=== PATIENT | male | born 1965 | race Caucasian/White ===

== ENCOUNTER 2016-08-31 09:48 | Emergency (ER) | payer MEDICARE ==
[2016-08-31 09:57] VITALS: O2SAT 95
--- NOTE | 2016-08-31 10:09 | ERPHSYRPT ---
- History of Present Illness Time Seen by Provider: 08/31/16 10:03 Source: patient, family Exam Limitations: no limitations Patient Subjective Stated Complaint: pt reports swelling to left arm beginning aug 26-denies injury-denies numbness or tinlging Triage Nursing Assessment: no obvious deformity to arm-no obvious injury-radial pulse regular et strong Physician History: The patient is a 51-year-old male with his complaining of a tender swollen area that is increasing in size on his distal left forearm. The tenderness and swelling began August 26. He is concerned today because it has moved an increased in size. He denies any injury to the area. He denies repetitive motion. He is left-handed. His past medical history is significant for hypertension, diabetes, and high cholesterol. Timing/Duration: day(s) (5) Quality: painful Severity: mild Location: other (left forearm) Possible Causes: no cause identified Associated Symptoms: other (swelling) Allergies/Adverse Reactions: ibuprofen [From Motrin] Allergy (Mild, Verified 08/31/16 09:57) tramadol Allergy (Mild, Verified 08/31/16 09:57) ketorolac [From Toradol] Allergy (Verified 08/31/16 09:57) Home Medications: Insulin Glargine,Hum.rec.anlog [Lantus] 36 unit SQ HS 05/11/16 [History] Insulin Aspart [NovoLOG Insulin] 0 unit SQ 05/12/16 [History] Aspirin [Aspir-Low] 81 mg PO DAILY 05/20/16 [History] Lisinopril 20 mg [Zestril 20 MG] 20 mg PO DAILY 05/20/16 [History] Multivitamin [Multivitamins] 1 each PO DAILY 05/20/16 [History] Simvastatin [Zocor] 20 mg PO DAILY 05/20/16 [History] Trazodone HCl 100 mg PO HS 05/20/16 [History] Alprazolam [Xanax] 2 mg PO DAILY 06/29/16 [History] Cholecalciferol (Vitamin D3) [Vitamin D] 2,000 unit PO DAILY 07/14/16 [ History] Lidocaine HCl 5% Patch [Lidoderm Patch 5%] 1 patch TOP HS 07/14/16 [ History] [place]-3/Dha/Epa/Fish Oil [[place] 3 500 Softgel] 1 each PO DAILY 07/14/16 [History ] Hx Tetanus, Diphtheria Vaccination/Date Given: Yes (12/2014) Hx Influenza Vaccination/Date Given: Yes Hx Pneumococcal Vaccination/Date Given: No Immunizations Up to Date: Yes - Review of Systems Constitutional: No Fever, No Chills Eyes: No Symptoms Ears, Nose, & Throat: No Symptoms Respiratory: No Cough, No Dyspnea Cardiac: No Chest Pain, No Edema, No Syncope Abdominal/Gastrointestinal: No Abdominal Pain, No Nausea, No Vomiting, No Diarrhea Genitourinary Symptoms: No Dysuria Musculoskeletal: No Back Pain, No Neck Pain Skin: Other (swelling) Neurological: No Dizziness, No Focal Weakness, No Sensory Changes Psychological: No Symptoms Endocrine: No Symptoms Hematologic/Lymphatic: No Symptoms Immunological/Allergic: No Symptoms All Other Systems: Reviewed and Negative - Past Medical History Pertinent Past Medical History: Yes Cardiac History: High Cholesterol, Hypertension Endocrine Medical History: Diabetes Type II Musculoskeletal History: Arthritis Psycho-Social History: Depression, Other Other Medical History: CHRONIC PAIN. PTSD, LOWER BACK PAIN - Past Surgical History Past Surgical History: Yes Musculoskeletal: Joint Replacement, Orthopedic Surgery Other Surgical History: back surgeryx3. left knee, right knee. ankle fusion left. fatty tumor. tonsilectomy - Social History Smoking Status: Never smoker Exposure to second hand smoke: No Drug Use: none Patient Lives Alone: No - Nursing Vital Signs Nursing Vital Signs: Initial Vital Signs Temperature 97.3 F Temperature Source Oral Pulse Rate 65 Respiratory Rate 16 Blood Pressure 157/94 Pain Intensity 8 - Physical Exam General Appearance: no apparent distress, alert Eye Exam: PERRL/EOMI, eyes nml inspection Ears, Nose, Throat Exam: normal ENT inspection, pharynx normal, moist mucous membranes Neck Exam: normal inspection, non-tender, supple, full range of motion Respiratory Exam: normal breath sounds, lungs clear, No respiratory distress Cardiovascular Exam: regular rate/rhythm, normal heart sounds Gastrointestinal/Abdomen Exam: soft, mass, No tenderness Rectal Exam: not done Back Exam: normal inspection, normal range of motion, No CVA tenderness, No vertebral tenderness Extremity Exam: normal inspection, normal range of motion Neurologic Exam: alert, oriented x 3, cooperative, normal mood/affect, sensation nml, No motor deficits Skin Exam: other (mild swelling and tenderness distal ventral left forearm) SpO2 Interpretation: normal SpO2: 95 Oxygen Delivery: Room Air - Progress Progress: unchanged Counseled pt/family regarding: diagnosis - Departure Time of Disposition: 10:14 Departure Disposition: Home Clinical Impression: Pain and swelling of left forearm Condition: Stable Critical Care Time: No Additional Instructions: Tylenol 1000 mg every 8 hrs and ice to area as needed. Follow up in 1 to 2 days if no improvement. Prescriptions: Clindamycin HCl 1 cap PO TID #30 capsule
[2016-08-31 10:24] VITALS: BP 149/74; PULSE 68
== END 2016-08-31 10:24 | disposition home or self-care (01) ==
LOC: ED 09:48
DX: M79.632 Pain in left forearm (principal); M79.89 Other specified soft tissue disorders
CPT/HCPCS: 99282

== ENCOUNTER 2016-10-09 09:19 | Emergency (ER) | payer MEDICARE ==
[2016-10-09 09:33] VITALS: O2SAT 97
--- NOTE | 2016-10-09 09:50 | ERPHSYRPT ---
- History of Present Illness Time Seen by Provider: 10/09/16 09:41 Source: patient, family Patient Subjective Stated Complaint: states smashed right 4th digit with a puller through deck. he and a frind were holding it up and it slipped and smashe his finger. He is only in the er to see if it is broken beacuse it "hurts to move" Triage Nursing Assessment: alert and orientetd. pink warm and dry. afebrile. limited rom in the right 4th digit. strong radial pulse. slight swelling Physician History: CC: right ring finger injury Hx: 51 y/o patient of Dr Richardson. Got right ring finger caught in mower belt changing jayna a few days ago. Pain and swelling. Using APAP. Tetanus up to date one year ago. No fever or chills. Severity of Pain-Max: moderate Severity of Pain-Current: moderate Allergies/Adverse Reactions: ibuprofen [From Motrin] Allergy (Mild, Verified 08/31/16 09:57) tramadol Allergy (Mild, Verified 08/31/16 09:57) ketorolac [From Toradol] Allergy (Verified 08/31/16 09:57) Home Medications: Insulin Glargine,Hum.rec.anlog [Lantus] 36 unit SQ HS 05/11/16 [History] Aspirin [Aspir-Low] 81 mg PO DAILY 05/20/16 [History] Lisinopril 20 mg [Zestril 20 MG] 20 mg PO DAILY 05/20/16 [History] Multivitamin [Multivitamins] 1 each PO DAILY 05/20/16 [History] Simvastatin [Zocor] 20 mg PO DAILY 05/20/16 [History] Trazodone HCl 100 mg PO HS 05/20/16 [History] Alprazolam [Xanax] 2 mg PO DAILY 06/29/16 [History] Cholecalciferol (Vitamin D3) [Vitamin D] 2,000 unit PO DAILY 07/14/16 [ History] Lidocaine HCl 5% Patch [Lidoderm Patch 5%] 1 patch TOP HS 07/14/16 [ History] [place]-3/Dha/Epa/Fish Oil [[place] 3 500 Softgel] 1 each PO DAILY 07/14/16 [History ] Hx Tetanus, Diphtheria Vaccination/Date Given: Yes (12/2014) Hx Influenza Vaccination/Date Given: Yes Hx Pneumococcal Vaccination/Date Given: No - Review of Systems Constitutional: No Fever, No Chills Musculoskeletal: Injury (right ring finger) Neurological: No Focal Weakness, No Parasthesia - Past Medical History Pertinent Past Medical History: Yes Cardiac History: High Cholesterol, Hypertension Endocrine Medical History: Diabetes Type II Musculoskeletal History: Arthritis Psycho-Social History: Depression, Other Other Medical History: CHRONIC PAIN. PTSD, LOWER BACK PAIN - Past Surgical History Past Surgical History: Yes Musculoskeletal: Joint Replacement, Orthopedic Surgery Other Surgical History: back surgeryx3. left knee, right knee. ankle fusion left. fatty tumor. tonsilectomy - Social History Smoking Status: Never smoker Exposure to second hand smoke: No Drug Use: none Patient Lives Alone: No - Nursing Vital Signs Nursing Vital Signs: Initial Vital Signs Temperature 98.0 F Temperature Source Oral Pulse Rate 56 Respiratory Rate 16 Blood Pressure [Left Arm] 142/65 Pain Intensity 8 - Physical Exam General Appearance: alert Cardiovascular/Respiratory Exam: regular rate/rhythm Neuro/Tendon Exam: normal motor functions Mental Status Exam: alert, oriented x 3, cooperative Skin Exam: warm, dry SpO2: 97 Oxygen Delivery: Room Air Comments: right ring finger has some swelling, mild erythema, no drng, good cap refill. Some limited ROM due to swellling. - Course Nursing assessment & vital signs reviewed: Yes - Radiology Exams right hand X-ray Interpretation: Discussed w/ radiologist, No Fracture (No FB) Ordered Tests: Active Orders 24 hr Category Date Time Status Splint STAT Care 10/09/16 10:51 Active Wound Care STAT Care 10/09/16 09:45 Active HAND (MINIMUM 3 VIEWS) Stat Exams 10/09/16 09:46 Completed - Progress Progress Note: 10/09/16 10:53 He has APAP at home for pain. Will try finger splint. Instr given. Counseled pt/family regarding: diagnosis, need for follow-up, rad results - Departure Time of Disposition: 10:53 Departure Disposition: Home Clinical Impression: Contusion of right ring finger Qualifiers: Encounter type: initial encounter Damage to nail status: without damage Qualified Code(s): S60.041A - Contusion of right ring finger without damage to nail, initial encounter Condition: Stable Critical Care Time: No Referrals: GORAN,KWAME, MD [Primary Care Provider] - Instructions: Contusion Additional Instructions: SPRAINS/STRAINS/CONTUSIONS 1. Rest the affected area as much as possible for the next few days. 2. Apply ice to the affected area for 20-30 minutes at a time, several times a day. 3. If you receive an elastic wrap, wear it only while awake for comfort and support. Re-wrap the elastic wrap if it feels too tight or too loose. 4. If swelling is present, elevate the affected part above the level of the heart for at least 2 to 3 days. 5. Use splints, slings, or crutches as instructed. 6. Watch for severe swelling, coldness, numbness, and discoloration of the fingers and toes. See your family physician or return to the emergency department if any of these are noted. Follow up with Dr Richardson as needed. Splint, ice, rest, elevate.
--- NOTE | 2016-10-09 10:42 | XRAY ---
Indication: Fourth finger pain following injury. Comparison: July 07, 2016. 3 views of the right hand obtained. Again negative for acute fracture, dislocation, or soft tissue abnormalities.
[2016-10-09 11:18] VITALS: BP 138/67; PULSE 62
== END 2016-10-09 11:19 | disposition home or self-care (01) ==
LOC: ED 09:19
DX: S60.041A Contusion of right ring finger without damage to nail, initial encounter (principal); W22.8XXA Striking against or struck by other objects, initial encounter; I10 Essential (primary) hypertension; E11.9 Type 2 diabetes mellitus without complications
CPT/HCPCS: 73130; 99282; 99283

== ENCOUNTER 2016-11-15 20:31 | Emergency (ER) | payer MEDICARE ==
--- NOTE | 2016-11-15 21:15 | XRAY ---
Indication: Index finger pain following injury. Comparison: None 3 views of the left hand obtained. No bony, articular, or soft tissue abnormalities.
--- NOTE | 2016-11-15 21:15 | ERPHSYRPT ---
- History of Present Illness Time Seen by Provider: 11/15/16 21:12 Source: patient Exam Limitations: no limitations Patient Subjective Stated Complaint: pt states he hurt his finger today and now has a knot and bruising. Triage Nursing Assessment: pt alert and oriented, answers questions approp. pt ambulatory with steady gait noted. respirations nonlabored with lungs cta. skin pink warm and dry. lt index finger with some bruising, decreased rom. cap refill and radial pulse wnl. Physician History: pt states he hurt his finger today and now has a knot and bruising. Occurred: last week Method of Injury: twisted Quality: constant Severity of Pain-Max: mild Severity of Pain-Current: mild Extremities Pain Location: 2nd finger: left Modifying Factors: Improves With: nothing Associated Symptoms: none Allergies/Adverse Reactions: ibuprofen [From Motrin] Allergy (Mild, Verified 08/31/16 09:57) tramadol Allergy (Mild, Verified 08/31/16 09:57) ketorolac [From Toradol] Allergy (Verified 08/31/16 09:57) strawberry Allergy (Verified 11/15/16 20:48) Home Medications: Insulin Glargine,Hum.rec.anlog [Lantus] 36 unit SQ HS 05/11/16 [History] Aspirin [Aspir-Low] 81 mg PO DAILY 05/20/16 [History] Lisinopril 20 mg [Zestril 20 MG] 20 mg PO DAILY 05/20/16 [History] Multivitamin [Multivitamins] 1 each PO DAILY 05/20/16 [History] Simvastatin [Zocor] 20 mg PO DAILY 05/20/16 [History] Trazodone HCl 100 mg PO HS 05/20/16 [History] Alprazolam [Xanax] 2 mg PO DAILY 06/29/16 [History] Cholecalciferol (Vitamin D3) [Vitamin D] 2,000 unit PO DAILY 07/14/16 [ History] Lidocaine HCl 5% Patch [Lidoderm Patch 5%] 1 patch TOP HS 07/14/16 [ History] [place]-3/Dha/Epa/Fish Oil [[place] 3 500 Softgel] 1 each PO DAILY 07/14/16 [History ] Hx Tetanus, Diphtheria Vaccination/Date Given: Yes (12/2014) Hx Influenza Vaccination/Date Given: Yes Hx Pneumococcal Vaccination/Date Given: No Immunizations Up to Date: Yes - Review of Systems Constitutional: No Symptoms Eyes: No Symptoms Ears, Nose, & Throat: No Symptoms Respiratory: No Symptoms Cardiac: No Symptoms Abdominal/Gastrointestinal: No Symptoms Genitourinary Symptoms: No Symptoms Musculoskeletal: Other (left index finger knot) - Past Medical History Pertinent Past Medical History: Yes Cardiac History: High Cholesterol, Hypertension Endocrine Medical History: Diabetes Type II Musculoskeletal History: Arthritis Psycho-Social History: Depression, Other Other Medical History: CHRONIC PAIN. PTSD, LOWER BACK PAIN - Past Surgical History Past Surgical History: Yes Musculoskeletal: Joint Replacement, Orthopedic Surgery Other Surgical History: back surgeryx3. left knee, right knee. ankle fusion left. fatty tumor. tonsilectomy - Social History Smoking Status: Former smoker Exposure to second hand smoke: No Drug Use: none Patient Lives Alone: No - Nursing Vital Signs Nursing Vital Signs: Initial Vital Signs Temperature 98.4 F Temperature Source Oral Pulse Rate 86 Respiratory Rate 18 Blood Pressure [] 178/96 Pain Intensity 10 - Physical Exam General Appearance: no apparent distress Hand Exam: limited ROM, soft tissue tenderness, stiffness, swelling SpO2: 96 Oxygen Delivery: Room Air - Radiology Exams Hand X-ray Interpretation: Reviewed by me Ordered Tests: Active Orders 24 hr Category Date Time Status HAND (MINIMUM 3 VIEWS) Stat Exams 11/15/16 20:41 Completed - Progress Progress: improved Counseled pt/family regarding: diagnosis, need for follow-up, rad results - Departure Time of Disposition: 21:40 Departure Disposition: Home Clinical Impression: Sprain of left index finger Qualifiers: Encounter type: initial encounter Sprain of finger site: metacarpophalangeal joint Qualified Code(s): S63.651A - Sprain of metacarpophalangeal joint of left index finger, initial encounter Condition: Stable Critical Care Time: No Referrals: KWAME ZIMMER MD [Primary Care Provider] - Instructions: Finger Sprain Additional Instructions: SPRAINS/STRAINS/CONTUSIONS 1. Rest the affected area as much as possible for the next few days. 2. Apply ice to the affected area for 20-30 minutes at a time, several times a day. 3. If you receive an elastic wrap, wear it only while awake for comfort and support. Re-wrap the elastic wrap if it feels too tight or too loose. 4. If swelling is present, elevate the affected part above the level of the heart for at least 2 to 3 days. 5. Use splints, slings, or crutches as instructed. 6. Watch for severe swelling, coldness, numbness, and discoloration of the fingers and toes. See your family physician or return to the emergency department if any of these are noted.
[2016-11-15 22:12] VITALS: BP 134/70; PULSE 84; O2SAT 100
== END 2016-11-15 22:12 | disposition home or self-care (01) ==
LOC: ED 20:31
DX: S63.651A Sprain of metacarpophalangeal joint of left index finger, initial encounter (principal); X50.0XXA Overexertion from strenuous movement or load, initial encounter; E78.00 Pure hypercholesterolemia, unspecified; I10 Essential (primary) hypertension; E11.9 Type 2 diabetes mellitus without complications; Z79.899 Other long term (current) drug therapy
CPT/HCPCS: 73130; 99284

== ENCOUNTER 2016-11-25 18:36 | Emergency (ER) | payer MEDICARE ==
[2016-11-25 18:47] VITALS: O2SAT 97
[2016-11-25] MEDS ORDERED: Cyclobenzaprine 10 MG PO ONE (19:42)
--- NOTE | 2016-11-25 19:42 | ERPHSYRPT ---
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 PT DENIES WEAKNESS, NUMBNESS, VISUAL DISTURBANCE, NAUSEA, VOMITING. Allergies/Adverse Reactions: ibuprofen [From Motrin] Allergy (Mild, Verified 11/25/16 18:47) tramadol Allergy (Mild, Verified 11/25/16 18:47) ketorolac [From Toradol] Allergy (Verified 11/25/16 18:47) strawberry Allergy (Verified 11/25/16 18:47) Home Medications: Insulin Glargine,Hum.rec.anlog [Lantus] 36 unit SQ HS 05/11/16 [History] Aspirin [Aspir-Low] 81 mg PO DAILY 05/20/16 [History] Lisinopril 20 mg [Zestril 20 MG] 20 mg PO DAILY 05/20/16 [History] Multivitamin [Multivitamins] 1 each PO DAILY 05/20/16 [History] Simvastatin [Zocor] 20 mg PO DAILY 05/20/16 [History] Trazodone HCl 100 mg PO HS 05/20/16 [History] Alprazolam [Xanax] 2 mg PO DAILY 06/29/16 [History] Cholecalciferol (Vitamin D3) [Vitamin D] 2,000 unit PO DAILY 07/14/16 [ History] Lidocaine HCl 5% Patch [Lidoderm Patch 5%] 1 patch TOP HS 07/14/16 [ History] [place]-3/Dha/Epa/Fish Oil [[place] 3 500 Softgel] 1 each PO DAILY 07/14/16 [History ] Hx Tetanus, Diphtheria Vaccination/Date Given: Yes (12/2014) Hx Influenza Vaccination/Date Given: Yes Hx Pneumococcal Vaccination/Date Given: No Immunizations Up to Date: Yes - Review of Systems Constitutional: No Fever Eyes: No Vision Changes Abdominal/Gastrointestinal: No Nausea, No Vomiting Musculoskeletal: Neck Pain Neurological: Headache, No Sensory Changes All Other Systems: Reviewed and Negative - Past Medical History Pertinent Past Medical History: Yes Cardiac History: High Cholesterol, Hypertension Endocrine Medical History: Diabetes Type II Musculoskeletal History: Arthritis Psycho-Social History: Depression, Other Other Medical History: CHRONIC PAIN. PTSD, LOWER BACK PAIN - Past Surgical History Past Surgical History: Yes Musculoskeletal: Joint Replacement, Orthopedic Surgery Other Surgical History: back surgeryx3. left knee, right knee. ankle fusion left. fatty tumor. tonsilectomy - Social History Smoking Status: Former smoker Exposure to second hand smoke: No Drug Use: none Patient Lives Alone: No - Nursing Vital Signs Nursing Vital Signs: Initial Vital Signs Temperature 98.4 F Temperature Source Oral Pulse Rate 80 Respiratory Rate 18 Blood Pressure [Right Arm] 182/86 Pain Intensity 8 - Physical Exam General Appearance: alert Eye Exam: PERRL/EOMI Ears, Nose, Throat Exam: TMs normal, pharynx normal Neck Exam: other (MILD POSTERIOR TENDERNESS LEFT>RIGHT) Respiratory Exam: normal breath sounds, lungs clear Cardiovascular Exam: normal heart sounds Gastrointestinal/Abdomen Exam: soft, normal bowel sounds Back Exam: normal inspection, No vertebral tenderness Extremity Exam: No pedal edema Neurologic Exam: alert, cooperative Skin Exam: warm, dry, other (MILDLY TENDER NODULE OVER THE LEFT INFERIOR ASPECT OF THE OCCIPUT) SpO2 Interpretation: normal SpO2: 97 Oxygen Delivery: Room Air - Course Nursing assessment & vital signs reviewed: Yes - CT Exams Head CT Interpretation: Discussed w/radiologist (STABLE NORMAL HEAD CT COMPARED TO .) Cervical Spine CT Interpretation: Discussed w/radiologist (LORDOTIC REVERSAL; C5-C7 DDD; NO ACUTE FX OR SUBLUXATION.) Ordered Tests: Active Orders 24 hr Category Date Time Status Cervical Collar Application STAT Care 11/25/16 18:49 Active CERVICAL SPINE WO CONTRAST [CT] Stat Exams 11/25/16 19:41 Taken HEAD WITHOUT CONTRAST [CT] Stat Exams 11/25/16 19:41 Taken Medication Summary Discontinued Medications Generic Name Dose Route Start Last Admin Trade Name Freq PRN Reason Stop Dose Admin Cyclobenzaprine HCl 10 mg 11/25/16 19:42 11/25/16 19:46 Cyclobenzaprine 10 Mg PO 11/25/16 19:43 10 mg STAT ONE Administration Cyclobenzaprine HCl Confirm 11/25/16 19:45 Cyclobenzaprine 10 Mg Administered 11/25/16 19:46 Dose 10 mg .ROUTE .STK-MED ONE - Departure Time of Disposition: 21:05 Departure Disposition: Home Clinical Impression: CERVCAL STRAIN, HEAD CONTUSION Condition: Fair Critical Care Time: No Instructions: Cervical Strain Additional Instructions: FOLLOW UP WITH PRIVATE DOCTOR TOMORROW. WEAR SOFT C-COLLAR FOR 2 WEEKS ONLY WHILE AWAKE. Prescriptions: Hydrocodone Bit/Acetaminophen [[place] 7.5-325 Tablet] 1 each PO Q4HPRN PRN #14 tablet PRN Reason: Pain Cyclobenzaprine HCl [Flexeril] 10 mg PO TID #20 tablet
[2016-11-25] MEDS ORDERED: Cyclobenzaprine 10 MG ONE (19:45)
[2016-11-25 20:50] VITALS: BP 182/86; PULSE 80
[2016-11-25] MEDS ORDERED: NORCO 5/325 MG PO ONE (21:06)
[2016-11-25] MEDS ORDERED: NORCO 5/325 MG ONE (21:08)
--- NOTE | 2016-11-26 08:35 | XRAY ---
Indication: Pain following posterior head injury. Multiple contiguous axial images obtained through the head without contrast. Comparison: June 05, 2016. Again normal appearing brain parenchyma, ventricles, and bony calvarium. Visualized paranasal sinuses and mastoid air cells are pneumatized and clear. Stable left occipital scalp calcified sebaceous cyst. Impression: Stable negative CT head without contrast exam. CT DI 49.41
--- NOTE | 2016-11-26 08:58 | XRAY ---
Indication: Pain following head injury. Multiple contiguous axial images obtained through the cervical spine. Sagittal and coronal reformatted images obtained. Comparison: None Axial images negative for acute fracture, suspicious bony lesions, or spinal canal stenosis. 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 There is mild/moderate C5-C7 and degenerative endplate spurring. Sagittal and coronal reformatted images demonstrates mild lordotic reversal, positional versus paraspinal muscular spasm. Minimal C5-C6 degenerative disc space narrowing. No acute compression fracture, subluxation, or jumped facet. Normal appearing craniocervical junction. Visualized noncontrasted soft tissues unremarkable. CT head reported separately. Impression: 1. Lordotic reversal, positional versus paraspinal spasm. 2. Negative for acute fracture/subluxation. 3. 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 CT DI 138.73
== END 2016-11-25 21:19 | disposition home or self-care (01) ==
LOC: ED 18:36
DX: S16.1XXA Strain of muscle, fascia and tendon at neck level, initial encounter (principal); S00.93XA Contusion of unspecified part of head, initial encounter; W22.8XXA Striking against or struck by other objects, initial encounter; Y93.H9 Activity, other involving exterior property and land maintenance, building and construction
CPT/HCPCS: 70450; 72125; 99284; L0120; L0172; A9270-GY

== ENCOUNTER 2017-01-17 17:26 | Emergency (ER) | payer MEDICARE ==
--- NOTE | 2017-01-17 17:57 | ERPHSYRPT ---
- History of Present Illness Time Seen by Provider: 01/17/17 17:53 Source: patient Exam Limitations: no limitations Patient Subjective Stated Complaint: twisted my right ankle playing softball Triage Nursing Assessment: PCP DR REAGAN, AOX3, VSS, NO FEVER, SWELLING NOTED, NO DEFORMITY NOTED, PMS INTACT. Physician History: The patient is a 51-year-old male with his daughter complaining that he got hit in the right ankle with a baseball while playing baseball with younger males a few minutes ago. He complains of pain and swelling. His past medical history is significant for diabetes, high cholesterol, and hypertension. Method of Injury: direct blow Occurred: just prior to arrival Quality: constant, sharpness Severity of Pain-Max: moderate Severity of Pain-Current: moderate Lower Extremities Pain: ankle: right Modifying Factors: Improves With: pain medication Associated Symptoms: none Allergies/Adverse Reactions: ibuprofen [From Motrin] Allergy (Mild, Verified 11/25/16 18:47) tramadol Allergy (Mild, Verified 11/25/16 18:47) ketorolac [From Toradol] Allergy (Verified 11/25/16 18:47) strawberry Allergy (Verified 11/25/16 18:47) Home Medications: Insulin Glargine,Hum.rec.anlog [Lantus] 36 unit SQ HS 05/11/16 [History] Aspirin [Aspir-Low] 81 mg PO DAILY 05/20/16 [History] Lisinopril 20 mg [Zestril 20 MG] 20 mg PO DAILY 05/20/16 [History] Multivitamin [Multivitamins] 1 each PO DAILY 05/20/16 [History] Simvastatin [Zocor] 20 mg PO DAILY 05/20/16 [History] Trazodone HCl 100 mg PO HS 05/20/16 [History] Alprazolam [Xanax] 2 mg PO DAILY 06/29/16 [History] Cholecalciferol (Vitamin D3) [Vitamin D] 2,000 unit PO DAILY 07/14/16 [ History] Lidocaine HCl 5% Patch [Lidoderm Patch 5%] 1 patch TOP HS 07/14/16 [ History] Olema-3/Dha/Epa/Fish Oil [Olema 3 500 Softgel] 1 each PO DAILY 07/14/16 [History ] Hx Tetanus, Diphtheria Vaccination/Date Given: Yes (12/2014) Hx Influenza Vaccination/Date Given: Yes Hx Pneumococcal Vaccination/Date Given: No Immunizations Up to Date: Yes - Review of Systems Constitutional: No Fever, No Chills Eyes: No Symptoms Ears, Nose, & Throat: No Symptoms Respiratory: No Cough, No Dyspnea Cardiac: No Chest Pain, No Edema, No Syncope Abdominal/Gastrointestinal: No Abdominal Pain, No Nausea, No Vomiting, No Diarrhea Genitourinary Symptoms: No Dysuria Musculoskeletal: Injury Skin: No Rash Neurological: No Dizziness, No Focal Weakness, No Sensory Changes Psychological: No Symptoms Endocrine: No Symptoms Hematologic/Lymphatic: No Symptoms Immunological/Allergic: No Symptoms All Other Systems: Reviewed and Negative - Past Medical History Pertinent Past Medical History: Yes Neurological History: No Pertinent History ENT History: No Pertinent History Cardiac History: Coronary Artery Disease, Hypertension Respiratory History: No Pertinent History Endocrine Medical History: Diabetes Type II Musculoskeletal History: Fractures GI Medical History: No Pertinent History History: No Pertinent History Psycho-Social History: Anxiety Male Reproductive Disorders: No Pertinent History Other Medical History: CHRONIC PAIN. PTSD, LOWER BACK PAIN - Past Surgical History Past Surgical History: Yes (LEFT ANKLE) Neuro Surgical History: No Pertinent History Cardiac: No Pertinent History Respiratory: No Pertinent History Gastrointestinal: No Pertinent History Genitourinary: No Pertinent History Musculoskeletal: Orthopedic Surgery Male Surgical History: No Pertinent History Other Surgical History: back surgeryx3. left knee, right knee. ankle fusion left. fatty tumor. tonsilectomy - Social History Smoking Status: Current every day smoker Exposure to second hand smoke: Yes Drug Use: none Patient Lives Alone: No (FAMILY) - Nursing Vital Signs Nursing Vital Signs: Initial Vital Signs Temperature 97.9 F Temperature Source Oral Pulse Rate 80 Respiratory Rate 20 Blood Pressure [Right Arm] 156/81 Pain Intensity 9 - Physical Exam General Appearance: mild distress Eyes, Ears, Nose, Throat Exam: moist mucous membranes Neck Exam: non-tender, supple Cardiovascular/Respiratory Exam: chest non-tender, normal breath sounds, regular rate/rhythm, no respiratory distress Gastrointestinal/Abdominal Exam: non-tender, guarding Back Exam: normal inspection, No vertebral tenderness Hips Exam: bilateral: non-tender, normal inspection Legs Exam: bilateral leg: non-tender, normal inspection Knees Exam: bilateral knee: non-tender, normal inspection Ankle Exam: right ankle: limited range of motion, pain, soft tissue tenderness, swelling, left ankle: non-tender, normal inspection Foot Exam: bilateral foot: non-tender, normal inspection Neuro/Tendon Exam: normal sensation, normal motor functions Mental Status Exam: alert, oriented x 3, cooperative Skin Exam: normal color, warm, dry SpO2 Interpretation: normal SpO2: 99 Oxygen Delivery: Room Air - Radiology Exams Right Ankle X-ray Interpretation: Interpreted by me, Negative Ordered Tests: Active Orders 24 hr Category Date Time Status Cold Application STAT Care 01/17/17 17:57 Active Ice Pack, Apply PRN Care 01/17/17 17:28 Active ANKLE (3 VIEWS) Stat Exams 01/17/17 17:58 Taken - Progress Progress: unchanged Counseled pt/family regarding: rad results - Departure Time of Disposition: 19:20 Departure Disposition: Home Clinical Impression: Contusion of right ankle Condition: Stable Critical Care Time: No Additional Instructions: You have a contusion on the outside of your right ankle. Apply ice as needed. You were given [place] to take home and use them 1-2 every 4-6 hours as needed for pain. Follow-up as needed.
[2017-01-17 18:22] VITALS: PULSE 80
[2017-01-17] MEDS ORDERED: NORCO 5/325 MG PO ONE (19:21)
[2017-01-17] MEDS ORDERED: NORCO 5/325 MG ONE (19:23)
[2017-01-17 19:33] VITALS: BP 160/80; O2SAT 97
--- NOTE | 2017-01-17 21:38 | XRAY ---
Indication: Pain following softball injury. Comparison: January 18, 2016. 3 views of the right ankle demonstrates mild soft tissue swelling and spurring of the distal tibia anteriorly and plantar calcaneus. Again no acute fracture, dislocation, or suspicious bony lesions.
== END 2017-01-17 19:33 | disposition home or self-care (01) ==
LOC: ED 17:26
DX: S90.01XA Contusion of right ankle, initial encounter (principal); Z79.899 Other long term (current) drug therapy; Z79.4 Long term (current) use of insulin; I25.10 Atherosclerotic heart disease of native coronary artery without angina pectoris; I10 Essential (primary) hypertension; E11.9 Type 2 diabetes mellitus without complications; X50.0XXA Overexertion from strenuous movement or load, initial encounter; Y93.64 Activity, baseball
CPT/HCPCS: 73610; 99283; 99284; A9270-GY